=== PATIENT | female | born 1950 | race Caucasian/White ===

== ENCOUNTER → 2019-10-08 12:25 | Outpatient (CLI) | payer MEDICARE, BC, SELFPAY ==
--- NOTE | ~2019-10-08 | DEXA_ITS ---
Bone Density Report Name: Phuong Holder Age: 69 Sex: Female Ethnicity: White Date of : 1950 Indication: osteopenia; monitoring treatment; height loss; postmenopausal Referring Provider: ANDREW PRADHAN Study: Bone densitometry was performed. Exam Date: October 08, 2019 Accession number: [id number] Bone Density: Region BMD T-score Z-score Classification AP Spine (L1-L4) 0.842 -1.9 0.1 Osteopenia Femoral Neck (Left) 0.812 -0.3 1.3 Normal Total Hip (Left) 1.007 0.5 1.9 Normal Femoral Neck (Right) 0.818 -0.3 1.4 Normal Total Hip (Right) 1.013 0.6 2.0 Normal Total Hip Mean 1.010 0.6 2.0 Normal World Health Organization criteria for BMD impression classify patients as: Normal (T-score at or above -1.0), Osteopenia (T-score between -1.0 and -2.5), or Osteoporosis (T-score at or below -2.5). 10-year Fracture Risk: FRAX not reported because: Treated for osteoporosis Previous Exams: Region Exam Age BMD T-score BMD Change BMD Change Date g/cm2 vs Baseline vs Previous AP Spine(L1-L4) 10/08/2019 69 0.842 -1.9 0.135 0.037 07/01/2017 66 0.805 -2.2 0.098 0.012 06/27/2015 64 0.792 -2.3 0.086 0.044* 04/14/2013 62 0.748 -2.7 0.041 -0.051* 02/20/2011 60 0.799 -2.3 0.093 0.026* 09/07/2008 57 0.773 -2.5 0.066 -0.005 03/07/2006 55 0.778 -2.4 0.071 -0.019 11/04/2003 53 0.797 -2.3 0.090* 0.090* 06/02/2002 51 0.707 -3.1 Total Hip(Left) 10/08/2019 69 1.007 0.5 0.079 0.031* 07/01/2017 66 0.976 0.3 0.048 -0.002 06/27/2015 64 0.978 0.3 0.050 -0.013 04/14/2013 62 0.991 0.4 0.063 0.005 02/20/2011 60 0.986 0.4 0.058 -0.018 09/07/2008 57 1.005 0.5 0.077 -0.021 03/07/2006 55 1.025 0.7 0.097 0.055 11/04/2003 53 0.971 0.2 0.043* 0.043* 06/02/2002 51 0.928 -0.1 Total Hip(Right) 10/08/2019 69 1.013 0.6 0.090 0.082* 07/01/2017 66 0.931 -0.1 0.008 -0.032* 06/27/2015 64 0.963 0.2 0.040 0.000 04/14/2013 62 0.963 0.2 0.040 -0.016 02/20/2011 60 0.978 0.3 0.056 0.011 09/07/2008 57 0.968 0.2 0.045 0.008 03/07/2006 55 0.960 0.1 0.037 0.033 11/04/2003 53 0.927 -0.1 0.005 0.005 06/02/2002 51
--- NOTE | ~2019-10-08 | MM_ITS ---
EXAMINATION: MM screening [facility] BI w светлана HISTORY: Screening mammogram TECHNIQUE: Craniocaudal and mediolateral oblique 3-D tomosynthesis images were obtained and synthetic 2-D images were generated. CAD analysis was submitted and interpreted. COMPARISON: 07/01/2017, 06/28/2016, 06/27/2015, 06/07/2014 BREAST PARENCHYMAL COMPOSITION: There are scattered areas of fibroglandular density. FINDINGS: There is no evidence of suspicious mass, calcification, or architectural distortion to sugg est malignancy in either breast. There has been no suspicious interval change. IMPRESSION: 1. No mammographic evidence of malignancy. 2. Recommend routine screening mammography in one year. BI-RADS Category 1: Negative Reviewed, dictated and finalized at location A.
== END ==
PROVIDERS: Visit Provider Obstetrics & Gynecology Gynecology
DX: Z12.31 Encounter for screening mammogram for malignant neoplasm of breast (principal); Z78.0 Asymptomatic menopausal state; M85.88 Other specified disorders of bone density and structure, other site
CPT/HCPCS: 77063; 77067; 77080